=== PATIENT | female | born 1950 | race Caucasian/White ===

== ENCOUNTER 2017-09-28 09:16 | Inpatient (IN) | payer OTHER, MEDICAID ==
[~2017-09-28] VITALS: Ht 172.7 cm; Wt 105.8 kg
[~2017-09-28 09:16] MED LIST: GLIP-115 PO; HCTZ25T PO; LOSA100T27 PO; METF-370 PO; METO-159 PO; NIFE60TA59 PO; PIO30T PO; SIMV10TA84 PO
[2017-09-28 11:06] LABS: Albumin 3.8 g/dL (3.4-5.0); Bilirubin, Total 0.3 mg/dL (0.2-1.0); Calcium 9.3 mg/dL (8.5-10.1); INR 0.91 (0.9-1.15); Potassium 4.4 mmol/L (3.5-5.1); Prothrombin Time 9.9 sec (9.37-12.3); Total Protein 8.3 g/dL (6.4-8.2)
[2017-09-28 11:09] LABS: Basophils # (auto) 0.1 uL; Basophils % (auto) 0.5 % (0.0-2.0); Eosinophils # (auto) 0.4 uL; Eosinophils % (auto) 3.8 % (0.0-7.0); Hematocrit 40.2 % (36.0-46.0); Hemoglobin 13.1 g/dL (12.2-16.2); Lymphocytes # (auto) 2.3 uL; Lymphocytes % (auto) 20.9 % (10.0-50.0); Mean Corpuscular Hgb Conc. 32.7 g/dL (32.0-36.0); Mean Corpuscular Volume 94.7 fL (80.0-100.0); Mean Platelet Volume 7.6 fL (6.9-10.8); Monocytes # (auto) 0.7 uL; Monocytes % (auto) 6.3 % (0.0-12.0); Neutrophils # (auto) 7.6 uL; Neutrophils % (auto) 68.5 % (37.0-80.0); Nucleated Red Blood Cells % 0.1 %; Platelet Count (auto) 347 10^3/uL (140-450); Red Cell Distribution Width 14.1 % (11.8-14.3); White Blood Cell 11.1 10^3/uL (4.4-10.8)
[2017-09-28] MEDS ORDERED: MORPHINE SULF INJ 2 MG/ML SYRINGE 1ML IV PRN (12:30)
[2017-09-28] MEDS ORDERED: HYDROcodone-ACET 5/325MG TAB PO PRN (12:30)
[2017-09-28] MEDS ORDERED: ONDANSETRON HCL 4 MG/2 ML VIAL IV PRN (12:30)
[2017-09-28] MEDS ORDERED: hydrALAZINE HCL 20 MG/ML VL IV PRN (12:30)
[2017-09-28] MEDS ORDERED: DEXTROSE (50%) 50ML SYRG IV PRN (16:00)
[2017-09-28] MEDS: ACCU-CHEK COMFORT CURVE STRIP VI SCH ×2 (18:35→23:38)
[2017-09-28] MEDS: InsuLIN REG 1unit/0.01ml Soln (100units/ml) SC SCH ×2 (18:55→23:38)
[2017-09-28 20:23] VITALS: BP 116/64
[2017-09-28] MEDS: PRAVASTATIN SODIUM 20 MG TAB PO SCH (21:30)
[2017-09-28 22:00] VITALS: BP 116/64
[2017-09-28 22:46] LABS: Urine Bilirubin Negative (Negative); Urine Blood Negative /uL (Negative); Urine Color Yellow (Yellow); Urine Glucose 1+ mg/dL (Normal); Urine Ketone Negative (Negative); Urine Nitrite Negative (Negative); Urine RBC <1 /hpf (0 - 4); Urine Urobilinogen Normal (Negative); Urine pH 5.5 (5.0-8.0)
[2017-09-29 05:18] VITALS: BP 116/69
[2017-09-29] MEDS: InsuLIN REG 1unit/0.01ml Soln (100units/ml) SC SCH ×3 (05:48→18:01)
[2017-09-29] MEDS: ACCU-CHEK COMFORT CURVE STRIP VI SCH ×3 (05:48→18:00)
[2017-09-29 06:09] LABS: Basophils # (auto) 0 uL; Basophils % (auto) 0.5 % (0.0-2.0); Eosinophils # (auto) 0.4 uL; Eosinophils % (auto) 3.9 % (0.0-7.0); Hematocrit 35.8 % (36.0-46.0); Hemoglobin 12.1 g/dL (12.2-16.2); Lymphocytes # (auto) 2.2 uL; Lymphocytes % (auto) 23.2 % (10.0-50.0); Mean Corpuscular Hgb Conc. 33.8 g/dL (32.0-36.0); Mean Corpuscular Volume 94.6 fL (80.0-100.0); Mean Platelet Volume 7.6 fL (6.9-10.8); Monocytes # (auto) 0.8 uL; Monocytes % (auto) 8.5 % (0.0-12.0); Neutrophils % (auto) 63.9 % (37.0-80.0); Platelet Count (auto) 269 10^3/uL (140-450); White Blood Cell 9.4 10^3/uL (4.4-10.8)
[2017-09-29 06:34] LABS: BUN/Creatinine Ratio 22.2; Calcium 8.7 mg/dL (8.5-10.1); Potassium 3.6 mmol/L (3.5-5.1)
[2017-09-29 09:00] VITALS: BP 110/62
[2017-09-29] MEDS ORDERED: LOSARTAN POTASSIUM 50 MG TAB PO SCH (10:00)
[2017-09-29] MEDS ORDERED: HCTZ 25 MG TAB PO SCH (10:00)
[2017-09-29] MEDS ORDERED: PIOGLITAZONE HYDROCHLORIDE 30 MG TAB PO SCH (10:00)
[2017-09-29] MEDS ORDERED: glipiZIDE 5 MG TAB PO SCH (10:00)
[2017-09-29] MEDS ORDERED: METOPROLOL TARTRATE 50 MG TAB PO SCH (10:00)
[2017-09-29] MEDS: METOPROLOL TARTRATE 50 MG TAB PO SCH (10:32)
[2017-09-29] MEDS: LOSARTAN POTASSIUM 50 MG TAB PO SCH (10:33)
[2017-09-29] MEDS: NIFEdipine ER 30 MG TAB PO SCH (10:34)
[2017-09-29] MEDS ORDERED: cefTRIAXone 1GM/10ml IVPUSH 10 ML IV ONE (11:45)
[2017-09-29] MEDS ORDERED: VANCOMYCIN PER PHARMACY 0 MG IV SCH (11:45)
[2017-09-29 13:00] VITALS: BP 127/57
[2017-09-29] MEDS: VANCOMYCIN 1GM/250ML 250 ML IV SCH (16:13)
[2017-09-29 17:13] VITALS: BP 122/65
[2017-09-29] MEDS: PRAVASTATIN SODIUM 20 MG TAB PO SCH (21:46)
[2017-09-29 22:00] VITALS: BP 124/72
[2017-09-30] MEDS: InsuLIN REG 1unit/0.01ml Soln (100units/ml) SC SCH ×4 (00:06→18:34)
[2017-09-30] MEDS: ACCU-CHEK COMFORT CURVE STRIP VI SCH ×4 (00:06→18:34)
[2017-09-30] MEDS: VANCOMYCIN 1GM/250ML 250 ML IV SCH ×2 (02:00→15:48)
[2017-09-30 05:17] VITALS: BP 123/73
[2017-09-30 08:41] LABS: Basophils # (auto) 0.1 uL; Basophils % (auto) 0.7 % (0.0-2.0); Eosinophils # (auto) 0.3 uL; Eosinophils % (auto) 3.7 % (0.0-7.0); Hematocrit 37.4 % (36.0-46.0); Hemoglobin 12.3 g/dL (12.2-16.2); Lymphocytes # (auto) 2.3 uL; Lymphocytes % (auto) 26.6 % (10.0-50.0); Mean Corpuscular Hemoglobin 31.1 pg (28.0-32.0); Mean Corpuscular Hgb Conc. 32.8 g/dL (32.0-36.0); Mean Corpuscular Volume 94.9 fL (80.0-100.0); Mean Platelet Volume 7.7 fL (6.9-10.8); Monocytes # (auto) 0.7 uL; Monocytes % (auto) 7.9 % (0.0-12.0); Neutrophils # (auto) 5.3 uL; Neutrophils % (auto) 61.1 % (37.0-80.0); Platelet Count (auto) 283 10^3/uL (140-450); White Blood Cell 8.6 10^3/uL (4.4-10.8)
[2017-09-30 08:51] LABS: Albumin 3.4 g/dL (3.4-5.0); BUN/Creatinine Ratio 17.8; Bilirubin, Total 0.2 mg/dL (0.2-1.0); Calcium 8.6 mg/dL (8.5-10.1); Total Protein 7.4 g/dL (6.4-8.2)
[2017-09-30 09:00] VITALS: BP 140/79
[2017-09-30] MEDS: NIFEdipine ER 30 MG TAB PO SCH (09:45)
[2017-09-30] MEDS: cefTRIAXone 1GM/10ml IVPUSH 10 ML IV SCH (09:45)
[2017-09-30] MEDS: METOPROLOL TARTRATE 50 MG TAB PO SCH (09:46)
[2017-09-30] MEDS: LOSARTAN POTASSIUM 50 MG TAB PO SCH (09:47)
[2017-09-30 13:00] VITALS: BP 131/61
[2017-09-30 17:00] VITALS: BP 129/63
[2017-09-30 21:35] VITALS: BP 121/65
[2017-09-30] MEDS: PRAVASTATIN SODIUM 20 MG TAB PO SCH (21:35)
[2017-10-01] MEDS: InsuLIN REG 1unit/0.01ml Soln (100units/ml) SC SCH ×4 (00:29→17:12)
[2017-10-01] MEDS: ACCU-CHEK COMFORT CURVE STRIP VI SCH ×4 (00:30→17:09)
[2017-10-01] MEDS: VANCOMYCIN 1GM/250ML 250 ML IV SCH ×2 (01:55→15:55)
[2017-10-01 05:00] VITALS: BP 126/76
[2017-10-01 08:25] VITALS: BP 132/86
[2017-10-01] MEDS: cefTRIAXone 1GM/10ml IVPUSH 10 ML IV SCH (09:27)
[2017-10-01] MEDS: LOSARTAN POTASSIUM 50 MG TAB PO SCH (09:33)
[2017-10-01] MEDS: NIFEdipine ER 30 MG TAB PO SCH (09:35)
[2017-10-01] MEDS: METOPROLOL TARTRATE 50 MG TAB PO SCH (09:35)
[2017-10-01 12:26] VITALS: BP 149/79
[2017-10-01] MEDS ORDERED: ceFAZolin 1GM/50ML 50 ML IV ONE (12:37)
[2017-10-01] MEDS ORDERED: NEOMYCIN-BACITRACIN-POLYM 15GM TOP OINT TOP ONE (12:38)
[2017-10-01] MEDS ORDERED: ceFAZolin 1GM VL ONE (12:38)
[2017-10-01] MEDS ORDERED: BUPIVACAINE 0.75% INJ 10ML MPV SDV IJ ONE (12:38)
[2017-10-01] MEDS ORDERED: PROPOFOL 10 MG/ML 20 ML IV ONE ×2 (12:52→12:55)
[2017-10-01] MEDS ORDERED: MIDAZOLAM HCL 1MG/1ML-2 ML VIAL ONE (12:52)
[2017-10-01] MEDS ORDERED: fentaNYL CITRATE 100 MCG/2 ML VL ONE (12:52)
[2017-10-01] MEDS ORDERED: METOCLOPRAMIDE HCL 5MG/ml INJ 2ml VIAL ONE (12:53)
[2017-10-01] MEDS ORDERED: ACCU-CHEK COMFORT CURVE STRIP VI ONE (13:30)
[2017-10-01] MEDS ORDERED: ONDANSETRON HCL 4 MG/2 ML VIAL IV ONE (13:30)
[2017-10-01] MEDS ORDERED: fentaNYL CITRATE 100 MCG/2 ML VL IV PRN (13:30)
[2017-10-01] MEDS ORDERED: NALOXONE HCL 0.4 MG/ML VIAL IV PRN (13:30)
[2017-10-01] MEDS ORDERED: LIDOCAINE 1% HCL (LOCAL ANESTH.) INJ 20ML MDV ID ONE (14:45)
[2017-10-01 16:24] VITALS: BP 135/76
[2017-10-01] MEDS ORDERED: MULTIPLE VITAMIN TAB PO ONE (18:00)
[2017-10-01] MEDS: PRAVASTATIN SODIUM 20 MG TAB PO SCH (21:48)
[2017-10-01] MEDS: ASCORBIC ACID 500 MG TAB PO SCH (21:48)
[2017-10-01] MEDS: SODIUM CHLOR 0.9% PF (SALINE LOCK) 10ML VIAL IV SCH (21:48)
[2017-10-01 21:54] VITALS: BP 155/79
[2017-10-02] VITALS (8 sets, daily range): BP systolic 110–157; BP diastolic 68–94
[2017-10-02] MEDS: ACCU-CHEK COMFORT CURVE STRIP VI SCH ×4 (00:07→17:44)
[2017-10-02] MEDS: InsuLIN REG 1unit/0.01ml Soln (100units/ml) SC SCH ×4 (00:08→17:44)
[2017-10-02] MEDS: VANCOMYCIN 1GM/250ML 250 ML IV SCH ×2 (01:54→13:45)
[2017-10-02 06:05] LABS: Basophils # (auto) 0 uL; Basophils % (auto) 0.6 % (0.0-2.0); Eosinophils # (auto) 0.3 uL; Eosinophils % (auto) 3.3 % (0.0-7.0); Hematocrit 36.5 % (36.0-46.0); Hemoglobin 12.3 g/dL (12.2-16.2); Lymphocytes # (auto) 1.9 uL; Lymphocytes % (auto) 23.1 % (10.0-50.0); Mean Corpuscular Hemoglobin 31.9 pg (28.0-32.0); Mean Corpuscular Hgb Conc. 33.6 g/dL (32.0-36.0); Mean Corpuscular Volume 94.8 fL (80.0-100.0); Mean Platelet Volume 7.1 fL (6.9-10.8); Monocytes # (auto) 0.6 uL; Monocytes % (auto) 6.8 % (0.0-12.0); Neutrophils # (auto) 5.6 uL; Neutrophils % (auto) 66.2 % (37.0-80.0); Nucleated Red Blood Cells % 0.1 %; Platelet Count (auto) 254 10^3/uL (140-450); Red Cell Distribution Width 13.9 % (11.8-14.3); White Blood Cell 8.4 10^3/uL (4.4-10.8)
[2017-10-02 06:21] LABS: BUN/Creatinine Ratio 16.3; Calcium 8.6 mg/dL (8.5-10.1); Potassium 3.9 mmol/L (3.5-5.1)
[2017-10-02 08:52] LABS: Albumin 3.3 g/dL (3.4-5.0); Bilirubin, Direct 0.1 mg/dL (0-0.2); Bilirubin, Total 0.4 mg/dL (0.2-1.0); Total Protein 7.2 g/dL (6.4-8.2)
[2017-10-02] MEDS: MULTIPLE VITAMIN TAB PO SCH (09:14)
[2017-10-02] MEDS: cefTRIAXone 1GM/10ml IVPUSH 10 ML IV SCH (09:14)
[2017-10-02] MEDS: ASCORBIC ACID 500 MG TAB PO SCH ×2 (09:15→21:38)
[2017-10-02] MEDS: METOPROLOL TARTRATE 50 MG TAB PO SCH (09:15)
[2017-10-02] MEDS: NIFEdipine ER 30 MG TAB PO SCH (09:15)
[2017-10-02] MEDS: LOSARTAN POTASSIUM 50 MG TAB PO SCH (09:16)
[2017-10-02] MEDS: SODIUM CHLOR 0.9% PF (SALINE LOCK) 10ML VIAL IV SCH ×2 (09:16→21:51)
[2017-10-02] MEDS: Boost Glucose Control 8 Ounces PO SCH ×2 (12:05→18:01)
[2017-10-02] MEDS: PRAVASTATIN SODIUM 20 MG TAB PO SCH (21:38)
[2017-10-03] MEDS: InsuLIN REG 1unit/0.01ml Soln (100units/ml) SC SCH ×4 (00:22→18:01)
[2017-10-03] MEDS: ACCU-CHEK COMFORT CURVE STRIP VI SCH ×4 (00:22→18:01)
[2017-10-03] MEDS: VANCOMYCIN 1GM/250ML 250 ML IV SCH ×2 (01:56→14:18)
[2017-10-03 05:00] VITALS: BP 122/63
[2017-10-03 05:51] LABS: Basophils # (auto) 0.1 uL; Basophils % (auto) 0.6 % (0.0-2.0); Eosinophils # (auto) 0.3 uL; Eosinophils % (auto) 3.2 % (0.0-7.0); Hemoglobin 12.5 g/dL (12.2-16.2); Lymphocytes # (auto) 2.2 uL; Mean Corpuscular Hgb Conc. 33.7 g/dL (32.0-36.0); Mean Platelet Volume 7.4 fL (6.9-10.8); Monocytes # (auto) 0.9 uL; Monocytes % (auto) 9.3 % (0.0-12.0); Neutrophils # (auto) 6.1 uL; Neutrophils % (auto) 63.9 % (37.0-80.0); Platelet Count (auto) 248 10^3/uL (140-450); White Blood Cell 9.5 10^3/uL (4.4-10.8)
[2017-10-03 06:21] LABS: Albumin 3.1 g/dL (3.4-5.0); BUN/Creatinine Ratio 18.1; Calcium 8.6 mg/dL (8.5-10.1)
[2017-10-03 06:24] LABS: Bilirubin, Total 0.3 mg/dL (0.2-1.0); Total Protein 7.2 g/dL (6.4-8.2)
[2017-10-03 08:00] VITALS: BP 134/83
[2017-10-03] MEDS: Boost Glucose Control 8 Ounces PO SCH ×3 (09:17→18:01)
[2017-10-03] MEDS: cefTRIAXone 1GM/10ml IVPUSH 10 ML IV SCH (09:37)
[2017-10-03] MEDS: MULTIPLE VITAMIN TAB PO SCH (09:37)
[2017-10-03] MEDS: ASCORBIC ACID 500 MG TAB PO SCH ×2 (09:37→22:06)
[2017-10-03] MEDS: NIFEdipine ER 30 MG TAB PO SCH (09:37)
[2017-10-03] MEDS: SODIUM CHLOR 0.9% PF (SALINE LOCK) 10ML VIAL IV SCH ×2 (09:38→22:05)
[2017-10-03] MEDS: METOPROLOL TARTRATE 50 MG TAB PO SCH (09:38)
[2017-10-03] MEDS: LOSARTAN POTASSIUM 50 MG TAB PO SCH (09:38)
[2017-10-03 12:00] VITALS: BP 138/71
[2017-10-03 17:05] VITALS: BP 132/69
[2017-10-03 20:00] VITALS: BP 139/75
[2017-10-03 22:00] VITALS: BP 139/75
[2017-10-03] MEDS: PRAVASTATIN SODIUM 20 MG TAB PO SCH (22:06)
[2017-10-04] MEDS: InsuLIN REG 1unit/0.01ml Soln (100units/ml) SC SCH ×4 (00:17→18:00)
[2017-10-04] MEDS: ACCU-CHEK COMFORT CURVE STRIP VI SCH ×4 (00:18→18:05)
[2017-10-04] MEDS: VANCOMYCIN 1GM/250ML 250 ML IV SCH ×2 (01:44→13:45)
[2017-10-04 06:12] LABS: Basophils # (auto) 0 uL; Basophils % (auto) 0.4 % (0.0-2.0); Eosinophils # (auto) 0.3 uL; Eosinophils % (auto) 2.9 % (0.0-7.0); Hematocrit 36.3 % (36.0-46.0); Hemoglobin 12.2 g/dL (12.2-16.2); Lymphocytes # (auto) 2.2 uL; Lymphocytes % (auto) 20.1 % (10.0-50.0); Mean Corpuscular Hemoglobin 31.7 pg (28.0-32.0); Mean Corpuscular Hgb Conc. 33.5 g/dL (32.0-36.0); Mean Corpuscular Volume 94.9 fL (80.0-100.0); Mean Platelet Volume 7.6 fL (6.9-10.8); Monocytes % (auto) 8.9 % (0.0-12.0); Neutrophils # (auto) 7.3 uL; Neutrophils % (auto) 67.7 % (37.0-80.0); Platelet Count (auto) 236 10^3/uL (140-450); White Blood Cell 10.7 10^3/uL (4.4-10.8)
[2017-10-04 06:48] LABS: Potassium 3.9 mmol/L (3.5-5.1)
[2017-10-04 06:53] LABS: BUN/Creatinine Ratio 19.4; Calcium 9.1 mg/dL (8.5-10.1)
[2017-10-04 08:16] VITALS: BP 135/68
[2017-10-04 09:05] LABS: Albumin 3.3 g/dL (3.4-5.0); Bilirubin, Direct 0.1 mg/dL (0-0.2); Bilirubin, Total 0.4 mg/dL (0.2-1.0); Total Protein 7.3 g/dL (6.4-8.2)
[2017-10-04] MEDS: SODIUM CHLOR 0.9% PF (SALINE LOCK) 10ML VIAL IV SCH ×2 (09:37→21:59)
[2017-10-04] MEDS: Boost Glucose Control 8 Ounces PO SCH ×3 (09:37→18:05)
[2017-10-04] MEDS: cefTRIAXone 1GM/10ml IVPUSH 10 ML IV SCH (09:37)
[2017-10-04] MEDS: ASCORBIC ACID 500 MG TAB PO SCH ×2 (09:38→21:37)
[2017-10-04] MEDS: NIFEdipine ER 30 MG TAB PO SCH (09:38)
[2017-10-04] MEDS: MULTIPLE VITAMIN TAB PO SCH (09:38)
[2017-10-04] MEDS: METOPROLOL TARTRATE 50 MG TAB PO SCH (09:39)
[2017-10-04] MEDS: LOSARTAN POTASSIUM 50 MG TAB PO SCH (09:39)
[2017-10-04] MEDS ORDERED: glipiZIDE 5 MG TAB PO ONE (10:00)
[2017-10-04 13:13] VITALS: BP 123/66
[2017-10-04 16:44] VITALS: BP 114/71
[2017-10-04 20:00] VITALS: BP 121/71
[2017-10-04] MEDS: PRAVASTATIN SODIUM 20 MG TAB PO SCH (21:37)
[2017-10-04 22:00] VITALS: BP 129/71
[2017-10-05] MEDS: InsuLIN REG 1unit/0.01ml Soln (100units/ml) SC SCH ×3 (00:16→11:24)
[2017-10-05] MEDS: ACCU-CHEK COMFORT CURVE STRIP VI SCH ×3 (00:16→11:24)
[2017-10-05] MEDS: VANCOMYCIN 1GM/250ML 250 ML IV SCH ×2 (02:03→14:00)
[2017-10-05 05:00] VITALS: BP 123/72
[2017-10-05] MEDS ORDERED: glipiZIDE 5 MG TAB PO SCH (07:00)
[2017-10-05 09:18] VITALS: BP 125/70
[2017-10-05] MEDS: ASCORBIC ACID 500 MG TAB PO SCH (09:20)
[2017-10-05] MEDS: NIFEdipine ER 30 MG TAB PO SCH (09:20)
[2017-10-05] MEDS: MULTIPLE VITAMIN TAB PO SCH (09:20)
[2017-10-05] MEDS: LOSARTAN POTASSIUM 50 MG TAB PO SCH (09:21)
[2017-10-05] MEDS: METOPROLOL TARTRATE 50 MG TAB PO SCH (09:21)
[2017-10-05] MEDS: SODIUM CHLOR 0.9% PF (SALINE LOCK) 10ML VIAL IV SCH (10:17)
[2017-10-05] MEDS: Boost Glucose Control 8 Ounces PO SCH ×2 (10:17→12:24)
[2017-10-05] MEDS: cefTRIAXone 1GM/10ml IVPUSH 10 ML IV SCH (10:17)
[2017-10-05 11:52] VITALS: BP 125/70
[2017-10-05 12:50] VITALS: BP 128/77
[2017-10-05 16:53] VITALS: BP 131/67
== END 2017-10-05 17:35 | disposition home health service (06) | DRG 857 ==
LOC: ER 09:16 → OVERFLOW 09:17 → WEST WING 20:27 → CENTRAL 10-03 08:36
PROVIDERS: ADMIT Internal Medicine; ATTEND Internal Medicine
PROC: 02HV33Z Insertion of Infusion Device into Superior Vena Cava, Percutaneous Approach (ICD-10-PCS; 2017-10-01)
PROC: 0JBQ0ZZ Excision of Right Foot Subcutaneous Tissue and Fascia, Open Approach (ICD-10-PCS; principal; 2017-10-01 12:54)
DX: T81.4XXA Infection following a procedure, initial encounter (principal); E44.0 Moderate protein-calorie malnutrition; E11.40 Type 2 diabetes mellitus with diabetic neuropathy, unspecified; E11.621 Type 2 diabetes mellitus with foot ulcer; L97.518 Non-pressure chronic ulcer of other part of right foot with other specified severity; L03.115 Cellulitis of right lower limb; L02.611 Cutaneous abscess of right foot; L97.519 Non-pressure chronic ulcer of other part of right foot with unspecified severity; S91.301A Unspecified open wound, right foot, initial encounter; B99.9 Unspecified infectious disease; E78.00 Pure hypercholesterolemia, unspecified; I10 Essential (primary) hypertension; B95.61 Methicillin susceptible Staphylococcus aureus infection as the cause of diseases classified elsewhere; B95.2 Enterococcus as the cause of diseases classified elsewhere; E66.9 Obesity, unspecified; E78.5 Hyperlipidemia, unspecified; Z79.899 Other long term (current) drug therapy; Z79.84 Long term (current) use of oral hypoglycemic drugs; Z83.3 Family history of diabetes mellitus; Y83.9 Surgical procedure, unspecified as the cause of abnormal reaction of the patient, or of later complication, without mention of misadventure at the time of the procedure; Z82.49 Family history of ischemic heart disease and other diseases of the circulatory system; Z68.35 Body mass index [BMI] 35.0-35.9, adult
CPT/HCPCS: 36415; 36569; 71010; 71020; 73630; 73718; 80048; 80053; 80076; 80202; 81001; 82565; 82962; 83036; 85025; 85610; 85730; 87070; 87075; 87077; 87081; 87186; 87205; 93005; 96372; J0690; J1815; J2250; J2704; J3490

== ENCOUNTER 2025-07-03 08:20 | Inpatient (IN) | payer MEDICAID, OTHER ==
[~2025-07-03] VITALS: Ht 177.8 cm; Wt 100.6 kg
[~2025-07-03 08:20] MED LIST changes: -GLIP-115 PO; +GLIP5TAB21 PO; -HCTZ25T PO; +HYDR25TA5 PO; +LOSA-535 PO; -LOSA100T27 PO; -NIFE60TA59 PO; +ROSU10TA64 PO; -SIMV10TA84 PO; +TIRZ2.5I SC
[2025-07-03] MEDS ORDERED: MORPHINE SULF PF 5 MG/10 ML VIAL ONE (08:42)
[2025-07-03] MEDS ORDERED: KETOROLAC TROMETH 30 MG/ML 1ML VIAL ONE (08:43)
[2025-07-03] MEDS: TETRACAINE 1% INJ 2 ML VIAL IJ ONE (08:44)
[2025-07-03] MEDS ORDERED: ONDANSETRON HCL 4 MG/2 ML VIAL ONE (08:47)
[2025-07-03] MEDS ORDERED: MIDAZOLAM HCL 2MG/2ML 2ml VIAL (1mg/ml) ONE (08:47)
[2025-07-03] MEDS ORDERED: KETAMINE 50mg/ML 1ml syringe ONE (08:47)
[2025-07-03] MEDS ORDERED: fentaNYL CITRATE 100 MCG/2 ML VL ONE (08:47)
[2025-07-03] MEDS ORDERED: LIDOCAINE 1% INJ PF 5ML AMP ONE (08:47)
[2025-07-03] MEDS ORDERED: PROPOFOL 10 MG/ML 20 ML IV ONE (08:47)
[2025-07-03] MEDS ORDERED: SODIUM CHLORIDE LOCK 10 ML ONE (08:47)
[2025-07-03] MEDS: BUPIVACAINE W/ EPINEPH 0.5% INJ 50ML MDV IJ ONE (08:48)
[2025-07-03] MEDS: VANCOMYCIN HCL 1000 MG VL ONE (08:49)
[2025-07-03] MEDS: CEFEPIME 1GM/50ML 50 ML IV ONE (09:27)
[2025-07-03] MEDS: ceFAZolin 2 GM/D5W50ml 50 ML IV ONE (09:27)
[2025-07-03] MEDS: TRANEXAMIC ACID 20 ML ONE (10:08)
[2025-07-03] MEDS: ROPIVACAINE 0.5% (5MG/ML) 20ML AMPULE IJ ONE ×2 (10:56→10:58)
[2025-07-03] MEDS ORDERED: HYDROmorphone HCL 2 MG/ML VL/or syr IV PRN ×3 (11:45→12:15)
[2025-07-03] MEDS ORDERED: ACETAMINOPHEN 325 MG TAB PO PRN (11:45)
[2025-07-03] MEDS: D5W/LACTATED RINGERS 1,000 ML IV SCH (11:45)
--- NOTE | 2025-07-03 11:47 | DVHOP2 ---
Operative Report - 2 Report Details Date: 07/03/25 Preop Diagnosis: Left knee degenerative arthritis Postop Diagnosis: Left knee degenerative arthritis Surgeon: Mandy Shields MD Cda Teacher: Alexandria PARISI Anesthesiologist: Sebas Anesthesia: Regional Drains: Shannan closed wound suction Implant: DonJoy size eight femur PS, size tibial base plate, size 13 poly Consent: The patient was informed of the risks and benefits of the procedure. These include but are not limited to complications of anesthesia, postoperative infection, incomplete relief of symptoms, recurrence of symptoms, damage to blood vessels, nerves and tendons, deep venous thrombosis, pulmonary embolism and possible need for repeat surgery in the future. Complications: None Estimated Blood Loss: 200 cc Fluids: See anesthesia record Findings: Denuded cartilage with eburnated bone, osteophytes, large posterior medial tibial bone cyst, normal cartilage of patella Indications for Surgery: Left knee degenerative arthritis with severe pain and functional impairment despite nonoperative management Name of Procedure Performed Left total knee arthroplasty Procedure Details Procedure Details: The patient was brought to the operating room and placed on the table in the supine position after being given spinal anesthetic with adequate analgesia obtained. Surgical timeout was performed verifying patient, laterality and procedure Preop patient received IV cefepime IV Ancef and IV tranexamic acid. Tourniquet was applied to the lower extremity. Lower extremity was prepped and draped in sterile fashion. Extremity was elevated, exsanguinated Esmarch, and tourniquet inflated. Midline incision was made followed by medial arthrotomy. I exposed the anterior medial and lateral tibial plateau and the anterior distal femur. Bovie and aqua mantis were used for hemostasis. I excised the anterior meniscal tissue with Bovie. I excised a portion of the fat pad with Bovie. The patella was everted and the knee flexed. I drilled the distal femur and suctioned the hole to reduce the risk of fat emboli. I inserted intramedullary guide with 5 degree valgus setting. I pinned the distal femoral cutting block anteriorly. Intramedullary mike was removed. Distal femoral cut was made and the block removed. I brought my attention to the tibia setting up the external cutting jig for the tibia paying attention to slope, rotation and varus valgus alignment. I set the depth and pinned the block. I used the external alignment mike to aid in checking alignment. Bone cut was made and bone removed releasing soft tissue attachments with Bovie. Cutting block removed. I then checked the extension gap and deemed adequate and removed the femur and tibia pins. I flexed the knee and applied the femoral sizing guide to the femur. I checked the size and external rotation setting at 90 degrees to Whitesides line and checking the epicondylar axis. I drilled the holes then removed the sizing guide and pin. I then tapped on the 4 in 1 cutting block and checked with the bj wing anteriorly to make sure that I would not notch then pinned the block. Cuts were made and the block and pins were removed. Bone was removed with curved osteotome. I used a rongeur to remove any remaining osteophytes at the femur and tibia. I then used a lamina floor installation mechanic to open up the back alternating between the medial and lateral side. Any remaining meniscal tissue was excised with scalpel. I used curved osteotome, curette and rongeur to remove any posterior osteophytes. I used a curette and rongeur to remove soft tissue in the posterior medial bone cyst. I prophylactically coagulated with aqua mantis. I then tapped on the template for the box cut and pinned it. Box cut was made and bone removed. Template and pin removed. I then tapped on the femoral trial. I then brought my attention back to the tibia sizing it. I used the external alignment mike to make sure that rotation and alignment were good. I made a Bovie joseph at the tibial tray joseph identifying rotation for later use. I tried various tibial polytrials. The patella tracked nicely without thumb pressure. I removed the trials. I pinned the tray and used the reamer and keel punch. The implants were brought into the field while bone preparation was started. I used both normal saline irrigation and the CarboJet to prepare the bone. I used the bone from the cuts to graft the femoral tunnel. Once cement was ready I applied cement to the tibial implant and tibial bone tapped it on and removed excess cement in usual fashion. In similar fashion I tapped on the femoral implant. I inserted the trial polyethylene and brought the knee into 30 degrees flexion. I irrigated with bactisurge irrigant. Once cement cured, I checked stability and range of motion as well as patella tracking. I checked with the multiple polyethylene inserts to determine the best size. tourniquet was released and hemostasis maintained with aqua mantis. I inserted the polyethylene and again checked stability. I used a 2 grams of vancomycin half of which was placed deep and half superficial. I repaired the extensor mechanism with the knee in flexion with #1 Ethibond interrupted [id number]. Deep subcutaneous tissue was closed with 0 Vicryl. Superficial subcutaneous tissue was closed with 2-0 vicryl interrupted. Skin was closed with sonya. I then applied the [shannan closed wound suction]. Patie nt tolerated the procedure well and was brought to recovery room in stable condition. Condition Stable Disposition Still a Patient MANDY SHIELDS MD Jul 03, 2025 11:47
[2025-07-03 11:56] VITALS: O2SAT 98
[2025-07-03] MEDS: ACETAMINOPHEN 325 MG TAB PO SCH (12:00)
[2025-07-03] MEDS: ACCU-CHEK COMFORT CURVE STRIP VI ONE (12:15)
[2025-07-03] MEDS ORDERED: MORPHINE SULFATE 4 MG/ML SYR/VIAL IV PRN (12:15)
[2025-07-03] MEDS ORDERED: METOCLOPRAMIDE HCL 5MG/ml INJ 2ml VIAL IV PRN (12:15)
[2025-07-03] MEDS: KETOROLAC TROMETH 30 MG/ML 1ML VIAL IV ONE (12:15)
[2025-07-03] MEDS ORDERED: MORPHINE SULFATE INJ 2 MG/ml SYRG IV PRN (12:15)
--- NOTE | 2025-07-03 12:49 | DVH ---
CLINICAL INDICATION: postop TECHNIQUE: 3 radiographic views of the left knee were obtained. Comparison: XR KNEE COMPLETE LT on DOS: 05/15/25, LEFT XR KNEE 3 VIEWS on DOS: 03/29/25, CR KNEE RIGHT 3 VIEW on DOS: 01/04/24 FINDINGS/IMPRESSION: Postsurgical changes from left knee arthroplasty.
[2025-07-03 16:02] VITALS: BP 141/78; PULSE 79; RESP 18; TEMP 98.1; O2SAT 96
[2025-07-03] MEDS: ceFAZolin 2 GM/D5W50ml 50 ML IV SCH (16:30)
[2025-07-03 17:00] VITALS: BP 141/78; PULSE 79; RESP 18; TEMP 98.1; O2SAT 96
[2025-07-03 21:00] VITALS: BP 135/72; PULSE 88; RESP 18; TEMP 98.3; O2SAT 95
[2025-07-03] MEDS: PREGABALIN 25 MG CAP PO SCH (21:30)
[2025-07-04 01:00] VITALS: BP 150/80; PULSE 74; RESP 18; TEMP 97.8; O2SAT 96
[2025-07-04 05:00] VITALS: BP 123/85; PULSE 89; RESP 18; TEMP 98.2; O2SAT 96
[2025-07-04 09:00] VITALS: BP 125/52; PULSE 83; RESP 18; TEMP 98.4; O2SAT 96
[2025-07-04 09:17] LABS: Hematocrit 31.9 % (36.0-46.0); Hemoglobin 10.7 g/dL (12.2-16.2); Mean Corpuscular Hemoglobin 30.4 pg (28.0-32.0); Mean Corpuscular Volume 90.7 fL (80.0-100.0); Nucleated Red Blood Cells % 0.1 %
[2025-07-04 09:41] LABS: Chloride 101 mmol/L (98-107); Potassium 4.4 mmol/L (3.5-5.1); Sodium 140 mmol/L (136-145)
[2025-07-04 09:42] LABS: Anion Gap 11 (5-15); Calcium 9.5 mg/dL (8.7-10.4); Carbon Dioxide 28 mmol/L (20-31)
[2025-07-04 09:47] LABS: BUN/Creatinine Ratio 15.5 (10.0-20.0); Blood Urea Nitrogen 22 mg/dL (9-23)
[2025-07-04 09:56] LABS: Glucose 205 mg/dL (74-106)
[2025-07-04] MEDS ORDERED: PATIENTS OWN MEDICATION (Metoprolol Tartrate 100 MG) PO SCH (10:00)
[2025-07-04] MEDS ORDERED: PATIENTS OWN MEDICATION (Losartan Potassium 100 MG) PO SCH (10:00)
[2025-07-04] MEDS: METOPROLOL SUCCINATE XL 50 MG TAB PO SCH (10:09)
[2025-07-04] MEDS: LOSARTAN POTASSIUM 50 MG TAB PO SCH (10:10)
[2025-07-04] MEDS: hydroCHLOROthiazide 25 MG TAB PO SCH (10:10)
[2025-07-04] MEDS: PIOGLITAZONE HYDROCHLORIDE 30 MG TAB PO SCH (10:15)
[2025-07-04] MEDS: glipiZIDE 5 MG TAB PO SCH (10:15)
--- NOTE | 2025-07-04 12:21 | DVHDS2 ---
Discharge Summary Date of Admission Jul 03, 2025 at 16:10 Date of Discharge: Jul 04, 2025 Labs/Diagnostic Data: Laboratory Results Test 07/04/25 10:14 07/04/25 08:30 POC Glucose 257 mg/dl (70-106) White Blood Count 14.5 10^3/uL (4.4-10.8) Red Blood Count 3.52 10^6/uL (4.0-5.20) Hemoglobin 10.7 g/dL (12.2-16.2) Hematocrit 31.9 % (36.0-46.0) Mean Corpuscular Volume 90.7 fL (80.0-100.0) Mean Corpuscular Hemoglobin 30.4 pg (28.0-32.0) Mean Corpuscular Hemoglobin Concent 33.5 g/dL (32.0-36.0) Red Cell Distribution Width 14.0 % (11.8-14.3) Platelet Count 458 10^3/uL (140-450) Mean Platelet Volume 7.0 fL (6.9-10.8) Neutrophils (%) (Auto) 76.4 % (37.0-80.0) Lymphocytes (%) (Auto) 11.5 % (10.0-50.0) Monocytes (%) (Auto) 11.4 % (0.0-12.0) Eosinophils (%) (Auto) 0.1 % (0.0-7.0) Basophils (%) (Auto) 0.6 % (0.0-2.0) Neutrophils # (Auto) 11.1 10 ^3/uL (1.6-8.6) Lymphocytes # (Auto) 1.7 10 ^3/uL (0.4-5.4) Monocytes # (Auto) 1.7 10 ^3/uL (0-1.3) Eosinophils # (Auto) 0 10 ^3/uL (0-0.8) Basophils # (Auto) 0.1 10 ^3/uL (0-0.2) Nucleated Red Blood Cells 0.1 % Sodium Level 140 mmol/L (136-145) Potassium Level 4.4 mmol/L (3.5-5.1) Chloride Level 101 mmol/L (98-107) Carbon Dioxide Level 28 mmol/L (20-31) Anion Gap 11 (5-15) Blood Urea Nitrogen 22 mg/dL (9-23) Creatinine 1.42 mg/dL (0.550-1.02) Glomerular Filtration Rate Calc 39 mL/min (>90) BUN/Creatinine Ratio 15.5 (10.0-20.0) Serum Glucose 205 mg/dL (74-106) Calcium Level 9.5 mg/dL (8.7-10.4) Other Laboratory Tests 07/04/25 08:30 Brief Hx & Hospital Course: Patient is brought to the hospital yesterday to undergo a total knee arthroplasty. She tolerated the procedure well without complications and was kept overnight for postoperative observation. Patient has remained medically stable denying any overnight events and reports some postoperative knee pain that is being well managed with the help of pain medication. Patient reports that she was able to get up and walk with the help of physical therapy and her walker and was able to get down the payne to the nurse's station and back to her bed with some pain but felt stable. Patient is otherwise feeling well denying any other complaints or concerns during my evaluation and is ready to go home. Condition at Discharge: Stable Final Diagnosis/Problems List Left knee degenerative arthritis Discharge Disposition: Home Discharge Instruct/Medications Diet: Regular Activity: See Comment Activity comment: Patient instructed to remain weight-bearing as tolerated with the assistance of a walker. Follow Up/Referral: Patient was instructed to follow up with our office in 10-14 days for her 1st postoperative evaluation Medications: Rx sent via our outpatient EMR system Scheduled Glipizide (Glipizide), 5 MG PO DAILY, (Reported) Hctz (Hydrochlorothiazide), 25 MG PO DAILY, (Reported) Losartan Potassium (Losartan Potassium), 100 MG PO DAILY, (Reported) Metformin Hydrochloride (Metformin Hcl), 1,000 MG PO IBID, (Reported) Metoprolol Tartrate (Metoprolol Tartrate), 100 MG PO DAILY, (Reported) Pioglitazone Hydrochloride (Actos Tablet), 1 TAB PO DAILY, (Reported) Rosuvastatin Calcium (Rosuvastatin Calcium), 10 MG PO DAILY, (Reported) Miscellaneous Medications Tirzepatide (Mounjaro), 2.5 MG SC, (Reported) Discontinued Medications Simvastatin (Simvastatin), 10 MG PO QHSP, (Reported) Discontinued Reason: Prescription changed Discharge Statement: "Patient was advised to return to the ER or call 911 if any headaches, dizziness, shortness of breath, chest pain, abdominal pain, bleeding, fevers, or worsening of medical condition. Patient was counseled about treatment plan, medications, possible side effects, patientverbalized understanding. All questions were answered to the best of my ability. This discharge took greater then 30 minutes in planning, reviewing documentation, counseling the patient, and discussing with other team members." ASSESSMENT ASSESSMENT Assessment Left knee degenerative arthritis DEE DEE WETZEL Jul 04, 2025 12:21
--- NOTE | 2025-07-04 12:22 | DVHPN2 ---
Progress Note - Dictate Date Seen: Jul 04, 2025 Medical Necessity Reason Pt with a Central, PICC or Fol: No Subjective Patient was sitting up comfortably in bed during my evaluation reports some postoperative knee pain that is being well managed with the help of pain medication. Patient reports that she was able to get up and walk with the help of physical therapy yesterday as well as this morning and was able to get down the payne around the nurses station and back to her bed with some postoperative knee pain but otherwise felt stable. Patient was otherwise feeling well denying any other complaints or concerns during today's evaluation. vital signs Vital Sign Date Time Temp Pulse Resp B/P (MAP) Pulse Ox O2 Delivery O2 Flow Rate FiO2 07/04/25 10:10 125/52 07/04/25 10:09 83 07/04/25 09:00 98.4 18 96 98.4 07/04/25 08:02 Room Air* 0 21 Total Intake and Output 07/03/25 07/03/25 07/04/25 15:00 23:00 07:00 Intake Total 220 ml 400 ml 450 ml Balance 220 ml 400 ml 450 ml medications Current Medications Medications Dose Ordered Sig/Miriam Route Start Time Stop Time Status Last Admin Dose Admin Glipizide 5 mg DAILY PO 07/04/25 10:00 07/04/25 10:15 5 MG Hydrochlorothiazide 25 mg DAILY PO 07/04/25 10:00 07/04/25 10:10 25 MG Metformin HCl 1,000 mg IBID PO 07/03/25 18:00 07/04/25 06:16 1,000 MG Pioglitazone HCl 30 mg DAILY PO 07/04/25 10:00 07/04/25 10:15 30 MG Patient Own Medication 100 mg DAILY PO 07/04/25 10:00 UNV Patient Own Medication 100 mg DAILY PO 07/04/25 10:00 Cancel Dextrose/Lactated Ringer's 1,000 ml @ 100 mls/hr Q10H IV 07/03/25 11:45 07/04/25 08:36 100 MLS/HR Acetaminophen 650 mg Q4HP PRN PO 07/03/25 11:45 Acetaminophen 650 mg Q6HR PO 07/03/25 12:00 07/04/25 10:56 650 MG Pregabalin 50 mg BID PO 07/03/25 22:00 07/04/25 10:09 50 MG Oxycodone HCl 5 mg Q4HP PRN PO 07/03/25 11:45 Oxycodone HCl 10 mg Q4HP PRN PO 07/03/25 11:45 07/04/25 04:12 10 MG Hydromorphone HCl 0.5 mg Q4HR PRN IV 07/03/25 11:45 Aspirin 81 mg BID PO 07/04/25 10:00 07/09/25 10:00 07/04/25 10:10 81 MG Losartan Potassium 100 mg DAILY PO 07/04/25 10:00 07/04/25 10:10 100 MG Metoprolol Succinate 100 mg DAILY PO 07/04/25 10:00 07/04/25 10:09 100 MG objective A&O x4 in no acute distress Knee range of motion grossly limited with pain on movement Iman dressing clean, dry, intact, and maintaining suction No distal edema or calf tenderness to palpation Neurovascularly intact with cap refill less than 2 seconds laboratory and microbiology Laboratory Tests 07/04/25 08:30 Test 07/04/25 08:30 Range/Units Serum Glucose 205 H 74-106 mg/dL Assessment/Plan Patient to be discharged home and advised to remain weight-bearing as tolerated with the assistance of her walker. I instructed the patient to maintain her dressing clean, dry, intact, and maintaining suction and to call our office to schedule her 1st postoperative evaluation about 10-14 days, I also instructed the patient to call our office if she has any further questions or concerns. Rx sent via our outpatient EMR system. Patient understood and agreed. Plan discussed with: Patient DEE DEE WETZEL Jul 04, 2025 12:22
[2025-07-04 13:00] VITALS: BP 144/59; PULSE 85; RESP 20; TEMP 98.2; O2SAT 97
[2025-07-04 14:15] VITALS: BP 144/59; PULSE 85; RESP 20; TEMP 98.2; O2SAT 97
== END 2025-07-04 15:20 | disposition home health service (06) | DRG 470 ==
LOC: SUR 08:20 → CENTRAL 16:10
PROVIDERS: ADMIT Orthopaedic Surgery; ATTEND Orthopaedic Surgery
PROC: 0SRD0J9 Replacement of Left Knee Joint with Synthetic Substitute, Cemented, Open Approach (ICD-10-PCS; principal; 2025-07-03 09:27)
DX: M17.12 Unilateral primary osteoarthritis, left knee (principal); M25.762 Osteophyte, left knee; M85.662 Other cyst of bone, left lower leg; E11.9 Type 2 diabetes mellitus without complications; I10 Essential (primary) hypertension; E78.5 Hyperlipidemia, unspecified; Z79.899 Other long term (current) drug therapy
CPT/HCPCS: 36415; 73562; 80048; 82962; 85025; 86850; 86900; 86901; 97163; G0378; J1885; J2250; J2405; J2704